=== PATIENT | male | born 1945 | race Caucasian/White ===

== ENCOUNTER 2017-08-21 05:55 | Day surgery (SDC) | payer OTHER ==
[2017-08-20 13:14] LABS: BASOPHILS # (AUTO) 0.1 X10'3 (0-0.2); BASOPHILS % (AUTO) 1.2 % (0-1); EOSINOPHILS # (AUTO) 0.1 X10'3 (0-0.9); HEMATOCRIT 43.3 % (42.0-52.0); HEMOGLOBIN 14.8 g/dl (14.0-17.9); LYMPHOCYTES # (AUTO) 1.5 X10'3 (1.1-4.8); LYMPHOCYTES % (AUTO) 21.3 % (21-51); MEAN CORPUSCULAR HEMOGLOBIN 30.3 PG (27.0-31.0); MEAN CORPUSCULAR VOLUME 88.9 FL (78-98); MEAN PLATELET VOLUME 8.2 FL (7.4-10.4); MONOCYTES # (AUTO) 0.6 X10'3 (0-0.9); MONOCYTES % (AUTO) 8.7 % (2-12); NEUTROPHILS # (AUTO) 4.6 X10'3 (1.8-7.7); NEUTROPHILS % (AUTO) 66.8 % (42-75); PLATELET COUNT 206 X10'3 (140-440); RED BLOOD COUNT 4.87 X10'6 (4.70-6.10); RED CELL DISTRIBUTION WIDTH 13.5 % (11.5-14.5); WHITE BLOOD COUNT 6.9 X10'3 (4.5-11.0)
[2017-08-20 13:15] LABS: ALBUMIN 3.6 G/DL (3.4-5.0); ANION GAP 9 (8-16); BLOOD UREA NITROGEN 21 MG/DL (7-18); BUN/CREATININE RATIO 20.2 (5.4-32.0); CALCIUM 8.8 MG/DL (8.5-10.1); CHLORIDE 109 MMOL/L (99-107); CREATININE 1.04 MG/DL (0.60-1.10); GLUCOSE 116 MG/DL (70-104); POTASSIUM 3.9 MMOL/L (3.5-5.1); SODIUM 145 MMOL/L (135-145); TOTAL CARBON DIOXIDE 26.7 MMOL/L (24-32); eGFR 70 ML/MIN
[2017-08-20 13:16] LABS: PARTIAL THROMBOPLASTIN TIME 25 SECONDS (22-32); PROTHROMBIN TIME 10.1 SECONDS (9.0-12.0)
[2017-08-21] VITALS (13 sets, daily range): BP systolic 110–138; BP diastolic 58–81
[~2017-08-21] VITALS: Ht 180.3 cm; Wt 86.8 kg
[~2017-08-21 05:55] MED LIST: CART1TAB4 PEG; CYAN25004 SL; FINA5TAB11 PO; GABA-532 PO; KRIL500C PO; RED600TA PO; TRAM50TA2 PO
[2017-08-21] MEDS ORDERED: LORazepam 0.5 MG tablet PO PRN (06:30)
[2017-08-21] MEDS ORDERED: TAMS0.4C32 PO (06:30)
[2017-08-21] MEDS ORDERED: diphenhydrAMINE 25mg capsule PO PRN (06:30)
[2017-08-21] MEDS ORDERED: TURM500C4 PO (06:30)
[2017-08-21] MEDS ORDERED: normal saline 1000ml 1,000 ML IV SCH (06:30)
[2017-08-21] MEDS ORDERED: nitroGLYCERIN-Tridil 50MG/D5W 250 ML IV ONE (07:43)
[2017-08-21] MEDS ORDERED: midazolam 2 mg/2 ml injection ONE (07:44)
[2017-08-21] MEDS ORDERED: fentaNYL/PF 50MCG/1 ML 2ML syringe ONE (07:44)
[2017-08-21] MEDS ORDERED: iohexol 350 MG/ML 50ML vial IV ONE (07:44)
[2017-08-21] MEDS ORDERED: heparin 1,000unit/ml 10ml vial 10 ML ONE (07:44)
[2017-08-21] MEDS ORDERED: iohexol 350MG/ML 100ml bottle IV ONE (07:44)
[2017-08-21] MEDS ORDERED: LIDOcaine 1% 30ml preserv. free vial ONE (07:45)
== END 2017-08-21 14:50 | disposition home or self-care (01) ==
LOC: SSTAY O 05:55
PROVIDERS: ATTEND Internal Medicine Cardiovascular Disease
DX: I25.10 Atherosclerotic heart disease of native coronary artery without angina pectoris (principal); E78.5 Hyperlipidemia, unspecified; J44.9 Chronic obstructive pulmonary disease, unspecified; N40.0 Benign prostatic hyperplasia without lower urinary tract symptoms; K21.9 Gastro-esophageal reflux disease without esophagitis; B15.9 Hepatitis A without hepatic coma; M19.90 Unspecified osteoarthritis, unspecified site; M81.0 Age-related osteoporosis without current pathological fracture; M16.11 Unilateral primary osteoarthritis, right hip; Z79.891 Long term (current) use of opiate analgesic; Z90.89 Acquired absence of other organs; Z98.41 Cataract extraction status, right eye; Z98.42 Cataract extraction status, left eye; Z96.641 Presence of right artificial hip joint; Z88.8 Allergy status to other drugs, medicaments and biological substances; Z72.89 Other problems related to lifestyle; Z98.890 Other specified postprocedural states; Z79.899 Other long term (current) drug therapy
CPT/HCPCS: 36415; 80048; 85025; 85610; 85730; 93005; 93458; 99152; 99153; A6257; C1760; C1769; J1644; J2250; J3010; J3490; J7030; Q0163; Q9967; A4620

== ENCOUNTER 2020-07-21 23:03 | Emergency (ER) | payer OTHER, MEDICARE ==
[~2020-07-21] VITALS: Ht 177.8 cm; Wt 80.9 kg
[~2020-07-21 23:03] MED LIST changes: +TAMS0.4C32 PO; +TURM500C4 PO
[2020-07-21 23:06] VITALS: BP 111/84
== END 2020-07-22 00:45 | disposition home or self-care (01) ==
LOC: ER 23:04
DX: T83.091A Other mechanical complication of indwelling urethral catheter, initial encounter (principal); Z88.8 Allergy status to other drugs, medicaments and biological substances; Z79.899 Other long term (current) drug therapy; Y84.6 Urinary catheterization as the cause of abnormal reaction of the patient, or of later complication, without mention of misadventure at the time of the procedure
CPT/HCPCS: 99281

== ENCOUNTER 2020-10-14 12:55 | Inpatient (IN) | payer MEDICARE, OTHER ==
[~2020-10-14] VITALS: Ht 177.8 cm; Wt 83.3 kg
[2020-10-14 13:54] LABS: BASOPHILS # (AUTO) 0.1 X10'3 (0-0.2); BASOPHILS % (AUTO) 0.7 % (0-1); EOSINOPHILS # (AUTO) 0.2 X10'3 (0-0.9); EOSINOPHILS % (AUTO) 1.7 % (0-6); HEMATOCRIT 43.7 % (42.0-52.0); HEMOGLOBIN 14.2 g/dl (14.0-17.9); LYMPHOCYTES # (AUTO) 1.9 X10'3 (1.1-4.8); LYMPHOCYTES % (AUTO) 19.8 % (21-51); MEAN CORPUSCULAR HEMOGLOBIN 28.3 PG (27.0-31.0); MEAN CORPUSCULAR HGB CONC 32.5 g/dL (33.0-36.5); MEAN PLATELET VOLUME 8.2 FL (7.4-10.4); MONOCYTES % (AUTO) 10.9 % (2-12); NEUTROPHILS # (AUTO) 6.3 X10'3 (1.8-7.7); NEUTROPHILS % (AUTO) 66.9 % (42-75); PLATELET COUNT 226 X10'3 (140-440); RED BLOOD COUNT 5.03 X10'6 (4.70-6.10); RED CELL DISTRIBUTION WIDTH 15.4 % (11.5-14.5); WHITE BLOOD COUNT 9.4 X10'3 (4.5-11.0)
[2020-10-14 14:11] LABS: ALANINE AMINOTRANSFERASE 33 U/L (12-78); ALBUMIN 3.7 G/DL (3.4-5.0); ALBUMIN/GLOBULIN RATIO 1.1 (1.1-1.5); ALKALINE PHOSPHATASE 95 IU/L (46-116); ANION GAP 5 (8-16); ASPARTATE AMINO TRANSFERASE 23 U/L (10-37); BILIRUBIN,TOTAL 0.4 MG/DL (0.1-1.0); BLOOD UREA NITROGEN 28 MG/DL (7-18); BUN/CREATININE RATIO 29.2 (5.4-32.0); CALCIUM 8.8 MG/DL (8.5-10.1); CHLORIDE 109 MMOL/L (99-107); CREATININE 0.96 MG/DL (0.60-1.10); GLUCOSE 90 MG/DL (70-104); POTASSIUM 3.8 MMOL/L (3.5-5.1); SODIUM 143 MMOL/L (135-145); TOTAL CARBON DIOXIDE 29.1 MMOL/L (24-32); eGFR 76 ML/MIN
[2020-10-14] MEDS ORDERED: aspirin 81mg tab.chew PO ONE (14:50)
[2020-10-14] MEDS ORDERED: magnesium 2GM in 50ml NS 50 ML IV PRN (15:30)
[2020-10-14] MEDS ORDERED: acetaminophen 325mg tablet PO PRN ×2 (15:30)
[2020-10-14] MEDS ORDERED: nitroGLYCERIN 0.4mg SUBLingual tab SL PRN (15:30)
[2020-10-14] MEDS ORDERED: ondansetron/PF 4mg/2ml inj IV PRN (15:30)
[2020-10-14] MEDS ORDERED: potassium Cl 20 mEq SR tablet PO PRN ×2 (15:30)
[2020-10-14] MEDS ORDERED: bisacodyl 10mg suppository rectal RC PRN (15:30)
[2020-10-14] MEDS ORDERED: mag hydrox/Alum hydrox/simeth 30ml oral suspension PO PRN (15:30)
[2020-10-14] MEDS ORDERED: magnesium 4gm in 100ml NS 100 ML IV PRN (15:30)
[2020-10-14] MEDS ORDERED: potassium Cl 40MEQ/1/2NS 520ml 520 ML IV PRN ×2 (15:30)
[2020-10-14] MEDS ORDERED: magnesium hydroxide 30ml (MOM) UD suspension PO PRN (15:30)
[2020-10-14] MEDS ORDERED: morphine 2 MG/ML inj. syringe IV PRN ×2 (15:30)
[2020-10-14] MEDS ORDERED: magnesium Cl slow-release 64mg tablet PO PRN (15:30)
[2020-10-14] MEDS ORDERED: METH-797 PO (16:15)
[2020-10-14] MEDS ORDERED: UBID300C PO (16:15)
[2020-10-14] MEDS ORDERED: KRIL1CAP PO (16:15)
[2020-10-14] MEDS ORDERED: ASPI-611 PO (16:15)
[2020-10-14] MEDS ORDERED: ACET-3080 PO (16:15)
[2020-10-14] MEDS: normal saline 1000ml 1,000 ML IV SCH (16:20)
[2020-10-14] MEDS ORDERED: cyclobenzaprine 10mg tablet PO PRN (16:35)
[2020-10-14] MEDS ORDERED: traMADol 50MG tablet PO PRN (16:35)
[2020-10-14] MEDS ORDERED: nitroGLYCERIN 0.4mg/hour patch TD ONE (16:40)
[2020-10-14 17:04] LABS: PARTIAL THROMBOPLASTIN TIME 24 SECONDS (22-32)
[2020-10-14 20:00] VITALS: BP 121/72
[2020-10-14] MEDS: K and/or MAG REPLACEMENT MC SCH (20:00)
[2020-10-14] MEDS: metoprolol tartrate 12.5mg (1/2 tablet) PO SCH (20:00)
--- NOTE | 2020-10-14 20:39 | NUR ---
Patient in room ED 4. I have received report from Henry in the ED and had the opportunity to ask questions and I will assume patient care when pt arrives to PCU unit.
--- NOTE | 2020-10-14 20:50 | NUR ---
pt arrived to floor assumed care
[2020-10-14] MEDS ORDERED: gabapentin 300mg capsule PO SCH (21:00)
[2020-10-14] MEDS ORDERED: temazepam 15mg capsule PO PRN (21:00)
[2020-10-14] MEDS ORDERED: tamsulosin 0.4mg capsule PO SCH (21:00)
[2020-10-14] MEDS ORDERED: finasteride 5mg tablet PO SCH (21:00)
[2020-10-14 22:00] VITALS: BP 141/67
[2020-10-15] VITALS (10 sets, daily range): BP systolic 101–146; BP diastolic 52–66
[2020-10-15] MEDS: normal saline 1000ml 1,000 ML IV SCH ×2 (01:55→11:35)
[2020-10-15 01:59] LABS: HEMATOCRIT 37.9 % (42.0-52.0); HEMOGLOBIN 12.4 g/dl (14.0-17.9); MEAN CORPUSCULAR HGB CONC 32.6 g/dL (33.0-36.5); MEAN CORPUSCULAR VOLUME 85.9 FL (78-98); MEAN PLATELET VOLUME 8.3 FL (7.4-10.4); PLATELET COUNT 190 X10'3 (140-440); RED BLOOD COUNT 4.41 X10'6 (4.70-6.10); RED CELL DISTRIBUTION WIDTH 15.3 % (11.5-14.5); WHITE BLOOD COUNT 8.2 X10'3 (4.5-11.0)
[2020-10-15 02:14] LABS: PARTIAL THROMBOPLASTIN TIME 25 SECONDS (22-32)
[2020-10-15 02:19] LABS: ALBUMIN 2.9 G/DL (3.4-5.0); ANION GAP 8 (8-16); BLOOD UREA NITROGEN 25 MG/DL (7-18); BUN/CREATININE RATIO 31.6 (5.4-32.0); CALCIUM 7.9 MG/DL (8.5-10.1); CHLORIDE 109 MMOL/L (99-107); CREATININE 0.79 MG/DL (0.60-1.10); GLUCOSE 121 MG/DL (70-104); POTASSIUM 3.6 MMOL/L (3.5-5.1); SODIUM 142 MMOL/L (135-145); TOTAL CARBON DIOXIDE 24.7 MMOL/L (24-32); eGFR > 90 ML/MIN
--- NOTE | 2020-10-15 06:10 | NUR ---
Problems reprioritized. Patient report given, questions answered & plan of care reviewed with Sarah COPELAND.
[2020-10-15] MEDS: K and/or MAG REPLACEMENT MC SCH (07:17)
[2020-10-15] MEDS: metoprolol tartrate 12.5mg (1/2 tablet) PO SCH (07:17)
[2020-10-15] MEDS ORDERED: iohexol 350MG/ML 100ml bottle IV ONE (07:30)
[2020-10-15] MEDS ORDERED: midazolam 1 mg/ML 2ml injection ONE (07:30)
[2020-10-15] MEDS ORDERED: heparin 1,000unit/ml 10ml vial 10 ML ONE (07:30)
[2020-10-15] MEDS ORDERED: LIDOcaine 1% (10mg/ml)w/preservative injection 20ml MDV ONE (07:30)
[2020-10-15] MEDS ORDERED: verapamil 2.5 mg/ml inj IV ONE (07:30)
[2020-10-15] MEDS ORDERED: iohexol 350 MG/ML 50ML vial IV ONE (07:30)
[2020-10-15] MEDS ORDERED: fentaNYL/PF 50MCG/1 ML 2ML syringe ONE (07:30)
[2020-10-15] MEDS ORDERED: nitroGLYCERIN-Tridil 50MG/D5W 250 ML IV ONE (07:31)
[2020-10-15] MEDS ORDERED: nitroGLYCERIN 0.4mg/hour patch TD SCH (08:00)
[2020-10-15] MEDS ORDERED: aspirin 325mg tablet PO SCH (08:30)
[2020-10-15] MEDS ORDERED: OMEP20TA5 PO (12:07)
--- NOTE | 2020-10-15 13:56 | NUR ---
DISCHARGE TEACHING DONE. ALL QUESTIONS AND CONCERNED ANSWERED. COPY OF SIGNED PAPERWORK IN CHART. GAVE PT ORIGINAL COPY OF SCRIPT. COPY OF SCRIPT IN CHART. IV AND TELE DISCONTINUED. ALL BELONGINGS WITH PT. PT WALKED DOWN TO LOBBY BY THIS RN TO PRIVATE VEHICLE.
== END 2020-10-15 13:30 | disposition home or self-care (01) | DRG 287 ==
LOC: ER 12:56 → ED HOLD 15:28 → PCU 3S 20:50
PROVIDERS: ADMIT Family Medicine; ATTEND Family Medicine
PROC: 4A023N7 Measurement of Cardiac Sampling and Pressure, Left Heart, Percutaneous Approach (ICD-10-PCS; principal; 2020-10-15)
PROC: B2111ZZ Fluoroscopy of Multiple Coronary Arteries using Low Osmolar Contrast (ICD-10-PCS; 2020-10-15)
PROC: B2151ZZ Fluoroscopy of Left Heart using Low Osmolar Contrast (ICD-10-PCS; 2020-10-15)
DX: I25.118 Atherosclerotic heart disease of native coronary artery with other forms of angina pectoris (principal); I45.2 Bifascicular block; R07.89 Other chest pain; D64.9 Anemia, unspecified; R94.39 Abnormal result of other cardiovascular function study; R79.89 Other specified abnormal findings of blood chemistry; E78.00 Pure hypercholesterolemia, unspecified; E78.5 Hyperlipidemia, unspecified; I10 Essential (primary) hypertension; N40.0 Benign prostatic hyperplasia without lower urinary tract symptoms; G47.30 Sleep apnea, unspecified; Z88.8 Allergy status to other drugs, medicaments and biological substances; Z90.49 Acquired absence of other specified parts of digestive tract; Z79.899 Other long term (current) drug therapy; Z79.82 Long term (current) use of aspirin
CPT/HCPCS: 36415; 71045; 76937; 80048; 80053; 83735; 83880; 84484; 85025; 85027; 85610; 85730; 87081; 93005; 93458; 99152; 99153; 99285; A4620; A5120; A6258; C1769; C1894; G0378; J1644; J2001; J2250; J3010; J3490; J7030; Q9967